=== PATIENT | female | born 1995 | race Caucasian/White ===

== ENCOUNTER 2019-11-16 19:41 | Emergency (ER) | payer OTHER ==
--- NOTE | 2019-11-16 19:46 | EDM.PDOC ---
ED HPI GENERAL MEDICAL PROBLEM - General Chief Complaint: General Stated Complaint: neck pain Time Seen by Provider: 11/16/19 19:45 Source of Information: Reports: Patient. Denies: Old Records History Limitations: Reports: Language Barrier - History of Present Illness INITIAL COMMENTS - FREE TEXT/NARRATIVE: The patient was brought to the emergency room via private automobile by her for 3-4 day history of increasing bilateral neck spasms with no history of fall, injury, etc. She has never had these problems in the past and simply woke up with the symptoms about 4 days ago. Patient did take 500 mg of Tylenol at 800 mg of ibuprofen earlier this morning with no improvement in symptoms. No recent history of abdominal pain, heartburn, nausea, diarrhea, melena, gross hematochezia, or any food intolerance, including fatty foods, etc.. The patient also denies any recent fever, cough, wheezing, dyspnea, etc.. She is a somewhat poor historian secondary to language difficulties. Onset: Gradual Onset Date: 11/13/19 Duration: Constant, Getting Worse Location: Reports: Neck Quality: Reports: Stabbing Severity: Severe Improves with: Reports: Rest Worsens with: Reports: Movement Context: Reports: Other (As above). 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 (Approximate): Other (See Below) 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: Current Mirena with no menses for about 2 years after her last delivery in March 2018 and she is also currently breast-feeding Endocrine/Metabolic History: Reports: Obesity/BMI 30+ Social & Family History - Tobacco Use Smoking Status *Q: Never Smoker Tobacco Use Within Last Twelve Months: No Used Tobacco, but Quit: No Smoking Cessation Information Provided To Patient: No Second Hand Smoke Exposure: No Second Hand Smoke Education Provided: No - Living Situation & Occupation Living situation: Reports: , with Family Occupation: Unemployed ED ROS GENERAL - Review of Systems Review Of Systems: Comprehensive ROS is negative, except as noted in HPI. ED EXAM, GENERAL - Physical Exam Exam: See Below Exam Limited By: No Limitations General Appearance: WD/WN, No Apparent Distress Head: Atraumatic, Normocephalic. No: Facial Swelling, Facial Tenderness, Sinus Tenderness Neck: Supple, Limited Range of Motion, Tender Lateral (Mild bilateral including some mild spasms). No: Lymphadenopathy (L), Lymphadenopathy (R), Tender Midline , Thyromegaly Respiratory/Chest: No Respiratory Distress, Lungs Clear, Normal Breath Sounds, No Accessory Muscle Use, Chest Non-Tender. No: Pleural Rub, Retractions Cardiovascular: Normal Peripheral Pulses, Regular Rate, Rhythm, No Edema, No Gallop, No JVD, No Murmur, No Rub. No: Gallop/S3, Gallop/S4, Friction Rub Peripheral Pulses: 2+: Radial (L), Radial (R) GI/Abdominal: Normal Bowel Sounds, Soft, Non-Tender, No Organomegaly, No Distention, No Abnormal Bruit, No Mass, Other (obese). No: Guarding (Female) Exam: Deferred Rectal (Female) Exam: Deferred Back Exam: Normal Inspection, Full Range of Motion. No: CVA Tenderness (L), CVA Tenderness (R), Muscle Spasm Extremities: Normal Inspection, Normal Range of Motion, Non-Tender, No Pedal Edema, Normal Capillary Refill. No: Leon's Sign Neurological: Alert, Oriented, CN II-XII Intact, Normal Cognition, Normal Gait, No Motor/Sensory Deficits Psychiatric: Normal Affect, Normal Mood Skin Exam: Warm, Dry, Intact, Normal Color, No Rash. No: Diaphoretic, Wound/ Incision Lymphatic: No Adenopathy Course - Vital Signs Last Recorded V/S: Last Vital Signs Temp 37.1 C 11/16/19 19:54 Pulse 75 11/16/19 19:54 Resp 14 11/16/19 19:54 BP 128/68 11/16/19 19:54 Pulse Ox 98 11/16/19 19:54 Vital Signs - 24 hr 11/16/19 19:54 Temperature [ 37.1 C Oral] Pulse, 75 Peripheral [ Right Pulse Oximetry] Respiratory 14 Rate Blood Pressure 128/68 [Right Upper Arm] O2 Sat by Pulse 98 Oximetry - Orders/Labs/Meds Labs: As above Meds: As above - Radiology Interpretation Free Text/Narrative:: As above Departure - Departure Time of Disposition: 20:23 Disposition: Home, Self-Care 01 Condition: Good Clinical Impression: Torticollis, acute - Discharge Information *PRESCRIPTION DRUG MONITORING PROGRAM REVIEWED*: Not Applicable *COPY OF PRESCRIPTION DRUG MONITORING REPORT IN PATIENT BHARATH: Not Applicable Prescriptions: Cyclobenzaprine [Flexeril] 10 mg PO TID PRN #30 tab PRN Reason: Spasms Instructions: Cyclobenzaprine tablets, Acute Torticollis, Adult Forms: ED Department Discharge Additional Instructions: 1. Follow up with your regular provider in 10-14 days as needed, if symptoms persist. Bring these discharge instructions with you to that visit.. 2. Tylenol 650 mg by mouth every 4 hours and/or OTC ibuprofen 2-3 tabs by mouth every 6 hours with food as directed./needed. You may stagger these medications for 48-72 hours only, which essentially means that you are receiving a pain medication about every 2 hours. 3. BenGay or equivalent, heating pad, and/or ice packs as directed. 4. Never take another person's medications 5. Sedation and dry mouth precautions with Flexeril as discussed 6. You may go to a chiropractor if needed 7. Immediately after this visit verify that your cellular telephone's voicemail has been activated and is empty. Also verify that your home telephone 's answering machine is operating properly and has space to receive messages. Note that it is sometimes necessary for us to be able to contact you at a later date to discuss your medical care. 8. Please remember that we are ALWAYS here for you and want to answer any questions you may have. Feel free to call the hospital any time and we call you back CADE. Sepsis Event Note - Focused Exam Vital Signs: Vital Signs Temp Pulse Resp BP Pulse Ox 11/16/19 19:54 37.1 C 75 14 128/68 98 Date Exam was Performed: 11/17/19 Time Exam was Performed: 02:49 - Problem List & Annotations (1) Torticollis, acute SNOMED Code(s): 18509403, 79648135 Code(s): M43.6 - TORTICOLLIS Status: Acute Priority: High Onset Date: ~ 11/13/19 Annotation/Comment:: Symptomatic relief as per discharge instructions. She was cautioned not to use her 's prescription ibuprofen. Sedation, etc. precautions were given with patient provided an emergency room prescription of Flexeril. She was also advised to consider discontinuation of breast-feeding secondary to Flexeril therapy. - Problem List Review Problem List Initiated/Reviewed/Updated: Yes - Assessment/Plan Assessment:: As above Plan: As above. Extensive precautions were given to the patient, who is in agreement with the treatment plan. See Patient Instructions for further treatment and plan.
== END 2019-11-16 20:23 | disposition home or self-care (01) ==
LOC: LL.ED 19:41
DX: M43.6 Torticollis (principal); E66.9 Obesity, unspecified; Z68.32 Body mass index [BMI] 32.0-32.9, adult
CPT/HCPCS: 99283

== ENCOUNTER 2020-04-27 09:28 | Emergency (ER) | payer BC, SELFPAY ==
[2020-04-27] MEDS ORDERED: Pantoprazole 40 MG Vial IVPUSH ONE (09:51)
[2020-04-27] MEDS ORDERED: Ondansetron 4 MG/2 ML SDV IVPUSH ONE (09:51)
[2020-04-27] MEDS ORDERED: Famotidine 20 MG/2 ML SDV IVPUSH ONE (09:51)
--- NOTE | 2020-04-27 09:51 | EDM.PDOC ---
ED HPI GENERAL MEDICAL PROBLEM - General Chief Complaint: Abdominal Pain Stated Complaint: abdominal pain Time Seen by Provider: 04/27/20 09:50 Source of Information: Reports: Patient, Family (), Old Records ([facility] EMR. No paper hospital chart available.) History Limitations: Reports: Language Barrier - History of Present Illness INITIAL COMMENTS - FREE TEXT/NARRATIVE: The patient was brought to the emergency room via private automobile by her for evaluation of a one-month history of intermittent frequent recurrent mostly epigastric abdominal pain associated with some fatty food and tolerance, including pizza, eggs, etc. She did have pizza at 2000 hrs. yesterday evening and awoke at 2 AM this morning with 9/10 severe epigastric burning, burping, and nausea. She has not taken any medications for her symptoms to this point, despite known history of GERD. Note that the patient did have multiple doses of ibuprofen over 5-day period secondary to beginning dental implant surgery with last dose of NSAIDs about 5 days ago. No recent history of other abdominal pain, emesis diarrhea, melena, gross hematochezia, or any food intolerance, including fatty foods, etc. with normal bowel movement at 1 AM this morning. She denies any known exposure to infection, food poisoning, etc.. No history of gross hematuria, colic, or other UTI symptoms. The patient also denies any recent fever, cough, wheezing, dyspnea, etc.. Onset: Gradual Onset Date: 04/27/20 Onset Time: 02:00 Duration: Constant, Getting Worse Location: Reports: Abdomen. Denies: Head, Face, Back, Pelvis, Upper Extremity, Left, Upper Extremity, Right, Radiates to Quality: Reports: Burning, Same as Previous Episode Severity: Severe Improves with: Reports: None Worsens with: Reports: None Context: Reports: Other (As above). Denies: Sick Contact, Trauma Associated Symptoms: Reports: Nausea/Vomiting (No emesis). Denies: Confusion, Chest Pain, Cough, Diaphoresis, Fever/Chills, Headaches, Loss of Appetite, Malaise, Seizure, Shortness of Breath, Syncope, Weakness Treatments RADIO RIGGER: Reports: Other (see below) (None) Upper Abdominal Pain Score (Numeric/FACES): 10 - Related Data Allergies Allergy/AdvReac Type Severity Reaction Status Date / Time No Known Allergies Allergy Verified 04/27/20 10:55 Home Meds: Home Meds Omeprazole 20 mg PO BIDAC #60 cap.sr 04/27/20 [Rx] Past Medical History HEENT History: Reports: Allergic Rhinitis, Sinusitis, Other (See Below). Denies: Cataract, Glaucoma, Hard of Hearing, Impaired Vision, Macular Degeneration, Otitis Media, Retinal Detachment Other HEENT History: Allergic rhinitis and sinusitis mostly to dust. Cardiovascular History: Reports: Syncope, Other (See Below). Denies: Afib, Aneurysm, Arrhythmia, Blood Clots/VTE/DVT, CAD, Heart Failure, Heart Murmur, High Cholesterol, Hypertension Other Cardiovascular History: The patient does not know her cholesterol status. Recurrent brief syncopal episodes with anxiety attacks as below. Respiratory History: Reports: Intubation, Previous. Denies: Asthma, Bronchitis, Recurrent, COPD, Intubation, Difficult, PE, Pneumonia, Recurrent, Pneumothorax, Sleep Apnea, TB Gastrointestinal History: Reports: GERD. Denies: Bowel Obstruction, Celiac Disease, Cholelithiasis, Chronic Constipation, Chronic Diarrhea, Fecal Incontinence, GI Bleed, Irritable Bowel Syndrome, Jaundice, PUD Genitourinary History: Reports: None. Denies: Acute Renal Failure, Chronic Renal Insuffiency, Renal Calculus, STD, Urinary Incontinence, UTI, Recurrent STREET LIGHT WIRER History: Reports: . Denies: Dysfunctional Uterine Bleeding, Endometriosis, Polycystic Ovaries, Spontaneous : 3 Para: 3 LMP (Approximate): Other (See Below) Other STREET LIGHT WIRER History: Current menses after repeat IUD placement as below with previous Mirena with no menses for about 2 years after her last delivery in March 2018. Full term delivery by C-sections without complications during pregnancies or deliveries. Musculoskeletal History: Reports: Arthritis, Back Pain, Chronic, Osteoarthritis. Denies: Fracture, Gout, Neck Pain, Chronic, RA, SLE Neurological History: Reports: None. Denies: Concussion, CVA, Headaches, Chronic, Head Trauma, Migraines, MS, Parkinson's, Seizure, TIA Psychiatric History: Reports: Anxiety, Depression, Other (See Below). Denies: Abuse, Victim of, ADD, ADHD, Addiction, Psych Hospitalization(s), Psychosis, PTSD, Suicide Attempt, Suicidal Ideation Other Psychiatric History: Psychogenic syncope as above. Endocrine/Metabolic History: Reports: Obesity/BMI 30+. Denies: Diabetes, Gestational, Diabetes, Type I, Diabetes, Type II, Diabetes Mellitus, Type 3c, Hypothyroidism, IDDM Hematologic History: Reports: None. Denies: Anemia, Blood Transfusion(s), Iron Deficiency Immunologic History: Reports: None. Denies: AIDS, HIV, SLE Oncologic (Cancer) History: Reports: None. Denies: Basal Cell Carcinoma, Cervix, Hodgkin's Lymphoma, Leukemia, Lymphoma, Malignant Melanoma, Non- Hodgkin's Lymphoma, Ovarian, Squamous Cell Carcinoma, Uterine Dermatologic History: Reports: None. Denies: Eczema, Psoriasis - Infectious Disease History Infectious Disease History: Reports: Chicken Pox. Denies: C-Difficile, Measles, Meningitis, Mononucleosis, MRSA, Mumps, Pertussis (Whooping Cough), Rheumatic Fever, Rubella, Scarlet Fever, Shingles, TB, VRE - Past Surgical History Head Surgeries/Procedures: Reports: None HEENT Surgical History: Reports: Adenoidectomy, Oral Surgery, Tonsillectomy, Other (See Below). Denies: Cataract Surgery, Eye Surgery, Laser Surgery, LASIK, Myringotomy w Tube(s), Naso-Sinus Surgery Other HEENT Surgeries/Procedures: Tonsillectomy and adenoidectomy at age 11. [place] teeth extraction x2 at age 11. Current dental implant in progress since March 2020. Cardiovascular Surgical History: Reports: None. Denies: Varicose Respiratory Surgical History: Reports: None. Denies: Thoracentesis GI Surgical History: Reports: None. Denies: Appendectomy, Cholecystectomy, Colonoscopy, EGD, Hernia, Abdominal, Hernia, Inguinal, Hernia Repair/Other Female Surgical History: Reports: Section, Other (See Below). Denies: Breast Biopsy, D&C, Hysterectomy, Tubal Ligation Other Female Surgeries/Procedures: C-sections x3 as above. Initial IUD placement after last delivery in March 2018 with complications of detached IUD with removal on 03/13/2020 and replacement on 04/11/2020. Endocrine Surgical History: Reports: None. Denies: Thyroid Biopsy Neurological Surgical History: Reports: None. Denies: C-Spine, Discectomy, Laminectomy, Lumbar Spine, Sacral Spine, Spinal Fusion, Thoracic Spine, Vertebroplasty Musculoskeletal Surgical History: Reports: None. Denies: Arthroscopic Procedure, Carpal Tunnel, Ganglion Cyst, Joint Replacement, ORIF, Shoulder Surgery Oncologic Surgical History: Reports: None Dermatological Surgical History: Reports: None - Past Imaging History Past Imaging History: Reports: Ultrasound (Pelvic ultrasound on 02/21/2020.) Social & Family History - Tobacco Use Smoking Status *Q: Never Smoker Tobacco Use Within Last Twelve Months: No Used Tobacco, but Quit: No Smoking Cessation Information Provided To Patient: No Second Hand Smoke Exposure: No Second Hand Smoke Education Provided: No - Caffeine Use Caffeine Use: Reports: Coffee (1 cup/day), Energy Drinks (1can/month), Tea (4 cups/day). Denies: Soda - Alcohol Use Alcohol Use History: No Days Per Week of Alcohol Use: 0 Number of Drinks Per Day: 0 Number of Drinks Per Day Comment: No previous DWIs, problems with alcohol abuse, etc. Total Drinks Per Week: 0 Alcohol Use in Last Twelve Months: No - Recreational Drug Use Recreational Drug Use: No Drug Use in Last 12 Months: No Recreational Drug Type: Denies: Amphetamines (Speed), Cocaine, Heroin, Inhalants (Glues, Solvents, Aerosols), LSD (Acid), Marijuana/Hashish, Methamphetamine, Morphine, Oxycodone - Sexual History Sexual History: Reports: Single Partner - Living Situation & Occupation Living situation: Reports: (2014, 3 children), with Family ( and 3 children.) Occupation: Unemployed ED ROS GENERAL - Review of Systems Review Of Systems: Comprehensive ROS is negative, except as noted in HPI. ED EXAM, GI/ABD - Physical Exam Exam: See Below Exam Limited By: No Limitations General Appearance: Alert, WD/WN, No Apparent Distress, Anxious (Mild) Eyes: Bilateral: Normal Appearance (No nystagmus), EOMI (PERRLA) Ears: Normal External Exam, Normal Canal, Hearing Grossly Normal, Normal TMs Nose: Normal Inspection, Normal Mucosa, No Blood Throat/Mouth: Normal Inspection, Normal Lips, Normal Teeth (Left lower dental extraction/implant site noted in the premolar region with no evidence of acute infection), Normal Gums, Normal Oropharynx, Normal Voice, No Airway Compromise. No: Dysphagia Head: No: Atraumatic, Normocephalic, Facial Swelling, Facial Tenderness, Sinus Tenderness Neck: Normal Inspection, Supple, Non-Tender, Full Range of Motion. No: Carotid Bruit, Lymphadenopathy (L), Lymphadenopathy (R), Thyromegaly Respiratory/Chest: No Respiratory Distress. No: Pleural Rub, Retractions Cardiovascular: Normal Peripheral Pulses, Regular Rate, Rhythm, No Edema, No Gallop, No JVD, No Murmur, No Rub. No: Gallop/S3, Gallop/S4, Friction Rub GI/Abdominal Exam: Soft, No Organomegaly, No Distention, No Mass, Pelvis Stable, Rebound (Borderline), Tender (Mostly in the midepigastric and periumbilical regionmoderate palpation), Abnormal Bowel Sounds (Mild diffuse increased bowel sounds not high-pitched in nature), Other (Obese). No: Guarding, Rigid (Female) Exam: Deferred Rectal (Female) Exam: Deferred Back Exam: Normal Inspection, Full Range of Motion. No: CVA Tenderness (L), CVA Tenderness (R), Muscle Spasm Extremities: Normal Inspection, Normal Range of Motion, Non-Tender, No Pedal Edema, Normal Capillary Refill. No: Leon's Sign (Endoscope) Neurological: Alert, Oriented, CN II-XII Intact, Normal Cognition, Normal Gait, No Motor/Sensory Deficits Psychiatric: Anxious (Mild), Depressed Mood ( borderline) Skin Exam: Warm, Dry, Intact, Normal Color, No Rash. No: Diaphoretic, Wound/Incision Lymphatic: No Adenopathy Course - Vital Signs Last Recorded V/S: Last Vital Signs Temp 36.9 C 04/27/20 12:00 Pulse 76 04/27/20 12:00 Resp 16 04/27/20 12:00 BP 109/60 04/27/20 12:00 Pulse Ox 100 04/27/20 12:00 Vital Signs - 24 hr 04/27/20 04/27/20 04/27/20 09:40 10:55 12:00 Temperature [ 36.7 C 36.9 C 36.9 C Oral] Pulse, 84 84 76 Peripheral [ Pulse Oximetry] Respiratory 17 18 16 Rate Blood Pressure 105/58 L 107/68 109/60 [Left Upper Arm ] O2 Sat by Pulse 99 99 100 Oximetry - Orders/Labs/Meds Orders: Active Orders 24 hr Category Date Time Status Peripheral IV Care [RC] . DIRECTED Care 04/27/20 09:52 Active Nothing Per Oral Diet [DIET] Diet 04/27/20 Breakfast Active Abdomen Pelvis w Cont [CT] Stat Exams 04/27/20 10:02 Taken Sodium Chloride 0.9% [Saline Flush] Med 04/27/20 09:51 Active 10 ml FLUSH ASDIRECTED PRN Obtain Past Medical Record [OM.PC] Urgent Oth 04/27/20 09:51 Active Peripheral IV Insertion Adult [OM.PC] Stat Oth 04/27/20 09:51 Ordered Resuscitation Status Stat Resus Stat 04/27/20 09:51 Ordered Medication Orders Sodium Chloride (Saline Flush) 10 ml FLUSH ASDIRECTED PRN PRN Reason: Keep Vein Open Last Admin: 04/27/20 11:47 Dose: 10 ml Documented by: Admin: 04/27/20 11:45 Dose: 10 ml Documented by: Admin: 04/27/20 10:00 Dose: 10 ml Documented by: Admin: 04/27/20 09:59 Dose: 10 ml Documented by: RAGHU Labs: Laboratory Tests 04/27/20 04/27/20 04/27/20 Range/Units 09:55 09:55 09:55 WBC 6.5 (4.0-10.2) K/uL RBC 5.02 (3.77-5.09) M/uL Hgb 14.9 (11.7-15.5) g/dL Hct 43.3 (34.0-46.0) % MCV 86.3 (84.0-98.0) fL MCH 29.7 (28.2-33.3) pg MCHC 34.4 (31.7-36.0) g/dL RDW 12.8 (11.2-14.1) % Plt Count 228 (150-350) K/uL Neut % (Auto) 43.8 L (45.0-80.0) % Lymph % (Auto) 41.4 (10.0-50.0) % [place] % (Auto) 8.5 (2.0-14.0) % Eos % (Auto) 6.0 H (0.0-5.0) % Baso % (Auto) 0.3 (0.0-2.0) % Neut # (Auto) 2.82 (1.40-7.00) K/uL Lymph # (Auto) 2.67 (0.50-3.50) K/uL [place] # (Auto) 0.55 (0.00-1.00) K/uL Eos # (Auto) 0.39 (0.00-0.50) K/uL Baso # (Auto) 0.02 (0.00-0.20) K/uL PT 9.9 (9.5-12.0) SEC INR 1.0 APTT 23.3 L (24.5-32.8) SEC Sodium (136-145) mmol/L Potassium (3.5-5.1) mmol/L Chloride (98-107) mmol/L Carbon Dioxide (21.0-32.0) mmol/L BUN (7-18) mg/dL Creatinine (0.51-1.17) mg/dL Est Cr Clr Drug Dosing Estimated GFR (MDRD) mL/min Glucose (74-106) mg/dL Lactic Acid (0.4-2.0) mmol/L Uric Acid (2.6-7.2) mg/dL Calcium (8.5-10.1) mg/dL Magnesium (1.8-2.4) mg/dL Total Bilirubin (0.2-1.0) mg/dL AST (15-37) U/L ALT (12-78) U/L Alkaline Phosphatase (46-116) IU/L Total Protein (6.4-8.2) g/dL Albumin (3.4-5.0) g/dL Amylase 56 (25-115) U/L Lipase (73-393) U/L HCG, Qual (NEGATIVE) 04/27/20 04/27/20 04/27/20 Range/Units 09:55 09:55 09:55 WBC (4.0-10.2) K/uL RBC (3.77-5.09) M/uL Hgb (11.7-15.5) g/dL Hct (34.0-46.0) % MCV (84.0-98.0) fL MCH (28.2-33.3) pg MCHC (31.7-36.0) g/dL RDW (11.2-14.1) % Plt Count (150-350) K/uL Neut % (Auto) (45.0-80.0) % Lymph % (Auto) (10.0-50.0) % [place] % (Auto) (2.0-14.0) % Eos % (Auto) (0.0-5.0) % Baso % (Auto) (0.0-2.0) % Neut # (Auto) (1.40-7.00) K/uL Lymph # (Auto) (0.50-3.50) K/uL [place] # (Auto) (0.00-1.00) K/uL Eos # (Auto) (0.00-0.50) K/uL Baso # (Auto) (0.00-0.20) K/uL PT (9.5-12.0) SEC INR APTT (24.5-32.8) SEC Sodium 139 (136-145) mmol/L Potassium 4.2 (3.5-5.1) mmol/L Chloride 104 (98-107) mmol/L Carbon Dioxide 24.7 (21.0-32.0) mmol/L BUN 14 (7-18) mg/dL Creatinine 0.52 (0.51-1.17) mg/dL Est Cr Clr Drug Dosing TNP Estimated GFR (MDRD) > 60 mL/min Glucose 114 H (74-106) mg/dL Lactic Acid 2.0 (0.4-2.0) mmol/L Uric Acid 5.2 (2.6-7.2) mg/dL Calcium 9.6 (8.5-10.1) mg/dL Magnesium 1.8 (1.8-2.4) mg/dL Total Bilirubin 0.3 (0.2-1.0) mg/dL AST 24 (15-37) U/L ALT 40 (12-78) U/L Alkaline Phosphatase 42 L (46-116) IU/L Total Protein 7.8 (6.4-8.2) g/dL Albumin 3.9 (3.4-5.0) g/dL Amylase (25-115) U/L Lipase 130 (73-393) U/L HCG, Qual Negative (NEGATIVE) Meds: Medications Generic Name Dose Route Start Last Admin Trade Name Freq PRN Reason Stop Dose Admin Sodium Chloride 10 ml 04/27/20 09:51 04/27/20 11:47 Saline Flush FLUSH 10 ml ASDIRECTED PRN Administration Keep Vein Open Discontinued Medications Generic Name Dose Route Start Last Admin Trade Name Freq PRN Reason Stop Dose Admin Al Hydroxide/Mg Hydroxide 30 ml 04/27/20 10:54 04/27/20 10:57 Gi Cocktail PO 04/27/20 10:55 30 ml ONETIME ONE Administration Famotidine 40 mg 04/27/20 09:51 04/27/20 09:58 Pepcid IVPUSH 04/27/20 09:52 40 mg ONETIME ONE Administration Iopamidol 100 ml 04/27/20 10:29 Isovue-300 (61%) IVPUSH 04/27/20 10:30 ONETIME ONE Iopamidol Confirm 04/27/20 10:32 Isovue-300 (61%) Administered 04/27/20 10:33 Dose 100 ml .ROUTE .STK-MED ONE Ketorolac Tromethamine 30 mg 04/27/20 11:39 04/27/20 11:44 Toradol IVPUSH 04/27/20 11:40 30 mg ONETIME ONE Administration Lorazepam 0.5 mg 04/27/20 11:40 04/27/20 11:44 Ativan IVPUSH 04/27/20 11:41 0.5 mg ONETIME ONE Administration Ondansetron HCl 4 mg 04/27/20 09:51 04/27/20 09:58 Zofran IVPUSH 04/27/20 09:52 4 mg ONETIME ONE Administration Pantoprazole Sodium 40 mg 04/27/20 09:51 04/27/20 09:58 Protonix Iv IVPUSH 04/27/20 09:52 40 mg ONETIME ONE Administration - Radiology Interpretation Free Text/Narrative:: Telephone consultation at 11:29 AM with the radiology department at [facility]. Preliminary verbal report of CT scan of the abdomen and pelvis with IV contrast was negative for cholelithiasis, cholecystitis, appendic itis, etc. Otherwise overall normal findings. CT Results Date: 04/27/20 CT Results Time: 11:29 Departure - Departure Time of Disposition: 12:10 Disposition: Home, Self-Care 01 Clinical Impression: Peptic reflux disease, Mixed anxiety depressive disorder Abdominal pain Qualifiers: Abdominal location: epigastric Qualified Code(s): R10.13 - Epigastric pain Osteoarthritis Qualifiers: Osteoarthritis location: multiple joints Osteoarthritis type: primary Qualified Code(s): M89.49 - Other hypertrophic osteoarthropathy, multiple sites - Discharge Information *PRESCRIPTION DRUG MONITORING PROGRAM REVIEWED*: Not Applicable *COPY OF PRESCRIPTION DRUG MONITORING REPORT IN PATIENT BHARATH: Not Applicable Prescriptions: Omeprazole 20 mg PO BIDAC #60 cap.sr Instructions: Heartburn, [id number], Abdominal Pain, Adult, [id number], Gallbladder Eating Plan, Fat and Cholesterol Restricted Eating Plan, [id number] Referrals: Luiza Gonzales PA-C [Primary Care Provider] - Forms: ED Department Discharge Additional Instructions: 1. Followup with your regular provider in 10-14 days as directed for reevaluation and discussion of your gallbladder/HIDA scan results. Bring these discharge instructions with you to that visit. 2. Tylenol 650 mg by mouth every 4 hours and/or OTC ibuprofen 2-3 tabs by mouth every 6 hours with food as directed./needed. You may stagger these medications for 48-72 hours only, which essentially means that you are receiving a pain medication about every 2 hours. Next dose of ibuprofen in 6 hours secondary to medications given in the emergency room 3. [place] diet including encouragement of oral fluids such as sports drinks, etc. for 24-48 hours as directed. Advance to strict low-fat, low-cholesterol diet as tolerated thereafter. 4. Sedation precautions with no driving, etc. for 18 hours because of emergency room medications. 5. HIDA scan in this facility on 05/04/2020 with hospital to call you with specific time, preparation, etc. 6. Immediately after this visit verify that your cellular telephone's voicemail has been activated and is empty. Also verify that your home telephone's answering machine is operating properly and has space to receive messages. Note that it is sometimes necessary for us to be able to contact you at a later date to discuss your medical care. 7. Please remember that we are ALWAYS here for you and want to answer any questions you may have. Feel free to call the hospital any time and we call you back [facility]. 9. Increase your Prilosec/omeprazole to 20 mg 2 times a day starting this afternoon, and you may take extra OTC antacids, if needed as discussed. Sepsis Event Note (ED) - Evaluation Sepsis Screening Result: No Definite Risk - Focused Exam Vital Signs: Vital Signs Temp Pulse Resp BP Pulse Ox 04/27/20 12:00 36.9 C 76 16 109/60 100 04/27/20 10:55 36.9 C 84 18 107/68 99 04/27/20 09:40 36.7 C 84 17 105/58 L 99 - Problem List & Annotations (1) Abdominal pain SNOMED Code(s): 65430681 Code(s): R10.9 - UNSPECIFIED ABDOMINAL PAIN Status: Acute Priority: High Current Visit: Yes Onset Date: 04/27/20 Annotation/Comment:: 1 month history of fatty food intolerance and intermittent abdominal pain as above. Note normal CT scan of the abdomen pelvis results as above. Borderline peritonitis by clinical exam as above, however no fever, leukocytosis, etc. Her amylase and lipase are also normal. Suspect dysfunctional gallbladder with HIDA scan to be conducted in this facility [facility]. The patient did have 2 episodes of loose diarrhea in the emergency room with persistent burping until the green lizard was given as below. Possible additional viral GE component. Note aggressive high-dose IV Protonix and IV Pepcid given in the emergency room with initial minimal results. Green lizard subsequently given. Additional low-dose IV Ativan and IV Toradol given prior to patient's discharge with symptoms signif icantly improved at time of discharge. Dietary issues were extensively discussed with information provided and strict avoidance of all fatty foods, etc. Her was given a [employer] work excuse. Qualifiers: Abdominal location: epigastric Qualified Code(s): R10.13 - Epigastric pain (2) Peptic reflux disease SNOMED Code(s): 831684496 Code(s): K21.9 - GASTRO-ESOPHAGEAL REFLUX DISEASE WITHOUT ESOPHAGITIS Status: Chronic Priority: High Current Visit: Yes Annotation/Comment:: Compliance with medications encouraged. High-dose IV Pepcid and Protonix given as above. No evidence of acute GI bleed. (3) Mixed anxiety depressive disorder SNOMED Code(s): 596883552 Code(s): F41.8 - OTHER SPECIFIED ANXIETY DISORDERS Status: Chronic Priority: Medium Current Visit: Yes Annotation/Comment:: Stable by history, although some mild anxiety component today. Low-dose IV Ativan given as above. Sedation precautions were given. (4) Osteoarthritis SNOMED Code(s): 902049663 Code(s): M19.90 - UNSPECIFIED OSTEOARTHRITIS, UNSPECIFIED SITE Status: Chronic Priority: Medium Current Visit: Yes Annotation/Comment:: Stable by history Qualifiers: Osteoarthritis location: multiple joints Osteoarthritis type: primary Qualified Code(s): M89.49 - Other hypertrophic osteoarthropathy, multiple sites - Problem List Review Problem List Initiated/Reviewed/Updated: Yes - My Orders Last 24 Hours: My Active Orders 04/27/20 Breakfast Nothing Per Oral Diet [DIET] 04/27/20 09:51 Sodium Chloride 0.9% [Saline Flush] 10 ml FLUSH ASDIRECTED PRN Obtain Past Medical Record [OM.PC] Urgent Peripheral IV Insertion Adult [OM.PC] Stat Resuscitation Status Stat 04/27/20 09:52 Peripheral IV Care [RC] . DIRECTED 04/27/20 10:02 Abdomen Pelvis w Cont [CT] Stat - Assessment/Plan Last 24 Hours: My Active Orders 04/27/20 Breakfast Nothing Per Oral Diet [DIET] 04/27/20 09:51 Sodium Chloride 0.9% [Saline Flush] 10 ml FLUSH ASDIRECTED PRN Obtain Past Medical Record [OM.PC] Urgent Peripheral IV Insertion Adult [OM.PC] Stat Resuscitation Status Stat 04/27/20 09:52 Peripheral IV Care [RC] . DIRECTED 04/27/20 10:02 Abdomen Pelvis w Cont [CT] Stat Assessment:: As above Plan: As above. Extensive precautions were given to the patient and her , who are in agreement with the treatment plan. See Patient Instructions for further treatment and plan.
[2020-04-27] MEDS: Sodium Chloride 0.9% 10 ML Syringe FLUSH PRN ×4 (09:59→11:47)
[2020-04-27 10:17] LABS: PTT,PARTIAL THROMBOPLSTIN TIME 23.3 SEC (24.5-32.8)
[2020-04-27 10:29] LABS: CHLORIDE,CL 104 mmol/L (98-107); SODIUM,NA 139 mmol/L (136-145)
[2020-04-27] MEDS ORDERED: Iopamidol 612 MG/ML 100 ML Bottle IVPUSH ONE (10:29)
[2020-04-27] MEDS ORDERED: Iopamidol 612 MG/ML 100 ML Bottle ONE (10:32)
[2020-04-27] MEDS ORDERED: GI Cocktail Oral Solution 30 ML PO ONE (10:54)
[2020-04-27] MEDS ORDERED: Ketorolac 30 MG/ML SDV IVPUSH ONE (11:39)
[2020-04-27] MEDS ORDERED: LORazepam 2 MG/ML SDV IVPUSH ONE (11:40)
== END 2020-04-27 12:10 | disposition home or self-care (01) ==
LOC: LL.ED 09:28
DX: K21.9 Gastro-esophageal reflux disease without esophagitis (principal); M89.49 Other hypertrophic osteoarthropathy, multiple sites; F41.8 Other specified anxiety disorders; Z79.899 Other long term (current) drug therapy
CPT/HCPCS: 36415; 74177; 80053; 82150; 83605; 83690; 83735; 84550; 84703; 85025; 85610; 85730; 96374; 96375; 99284; A9270; C9113; J1885; J2060; J2405; J3490; Q9967

== ENCOUNTER 2020-05-11 12:26 | Emergency (ER) | payer BC ==
[2020-05-11] MEDS ORDERED: Lactated Ringers 1,000 ML IV ONE (12:46)
[2020-05-11] MEDS ORDERED: Pantoprazole 40 MG Vial IVPUSH ONE (12:46)
[2020-05-11] MEDS ORDERED: Famotidine 20 MG/2 ML SDV IVPUSH ONE (12:46)
--- NOTE | 2020-05-11 12:46 | EDM.PDOC ---
ED HPI GENERAL MEDICAL PROBLEM - General Chief Complaint: Abdominal Pain Stated Complaint: stomach upset/nausea Time Seen by Provider: 05/11/20 12:46 Source of Information: Reports: Patient, Old Records ([facility] EMR. No paper hospital chart available.) History Limitations: Reports: No Limitations - History of Present Illness INITIAL COMMENTS - FREE TEXT/NARRATIVE: The patient was brought to the emergency room by the radiological tech for evaluation of diffuse generalized nonspecific abdominal cramping associated with hiccups, belching, nausea, etc. with symptoms occurring shortly after injection of contrast medium while patient was having a HIDA scan. Her symptoms are similar to her previous episode on 04/27/2020 with evaluation by me in this facility at that time. Symptoms did improve with dietary modifications at that time, however she still is having intermittent symptoms about 2-3 hours after food intake. The patient did have a normal bowel movement earlier today. She denies any gross hematuria, colic, or other UTI symptoms. The patient also denies any recent fever, cough, wheezing, dyspnea, etc.. Onset: Today, Sudden Onset Date: 05/11/20 Duration: Constant, Getting Worse Location: Reports: Abdomen. Denies: Head, Face, Neck, Chest, Back, Pelvis, Upper Extremity, Left, Upper Extremity, Right, Radiates to Quality: Reports: Same as Previous Episode Severity: Severe Improves with: Reports: None Worsens with: Reports: None Context: Reports: Other (As above). Denies: Sick Contact, Trauma Associated Symptoms: Reports: Nausea/Vomiting. Denies: Confusion, Chest Pain, Cough, Diaphoresis, Fever/Chills, Headaches, Loss of Appetite, Malaise, Rash, Shortness of Breath, Syncope, Weakness Treatments GOLDBEATER: Reports: Other (see below) (None) Middle Abdomen Pain Score (Numeric/FACES): 9 - Related Data Allergies Allergy/AdvReac Type Severity Reaction Status Date / Time No Known Allergies Allergy Verified 05/11/20 12:55 Home Meds: Home Meds Omeprazole 20 mg PO BIDAC #60 cap.sr 04/27/20 [Rx] Famotidine [Pepcid] 20 mg PO BID #60 tab 05/11/20 [Rx] Past Medical History HEENT History: Reports: Allergic Rhinitis, Sinusitis, Other (See Below). Denies: Cataract, Glaucoma, Hard of Hearing, Impaired Vision, Macular Degeneration, Otitis Media, Retinal Detachment Other HEENT History: Allergic rhinitis and sinusitis mostly to dust. Cardiovascular History: Reports: Syncope, Other (See Below). Denies: Afib, Aneurysm, Arrhythmia, Blood Clots/VTE/DVT, CAD, Heart Failure, Heart Murmur, High Cholesterol, Hypertension Other Cardiovascular History: The patient does not know her cholesterol status. Recurrent brief syncopal episodes with anxiety attacks as below. Respiratory History: Reports: Intubation, Previous. Denies: Asthma, Bronchitis, Recurrent, COPD, Intubation, Difficult, PE, Pneumonia, Recurrent, Pneumothorax, Sleep Apnea, TB Gastrointestinal History: Reports: GERD. Denies: Bowel Obstruction, Celiac Disease, Cholelithiasis, Chronic Constipation, Chronic Diarrhea, Fecal Incontin ence, GI Bleed, Irritable Bowel Syndrome, Jaundice, PUD Genitourinary History: Reports: None. Denies: Acute Renal Failure, Chronic Renal Insuffiency, Renal Calculus, STD, Urinary Incontinence, UTI, Recurrent DATA COMMUNICATIONS TECHNICIAN History: Reports: . Denies: Dysfunctional Uterine Bleeding, Endometriosis, Polycystic Ovaries, Spontaneous : 3 Para: 3 Other DATA COMMUNICATIONS TECHNICIAN History: LMP was normal about 2 weeks. Note after repeat IUD placement as below with previous Mirena with no menses for about 2 years after her last delivery in March 2018. Full term delivery by C-sections without complications during pregnancies or deliveries. Musculoskeletal History: Reports: Arthritis, Back Pain, Chronic, Osteoarthritis. Denies: Fracture, Gout, Neck Pain, Chronic, RA, SLE Neurological History: Reports: None. Denies: Concussion, CVA, Headaches, Chronic, Head Trauma, Migraines, MS, Parkinson's, Seizure, TIA Psychiatric History: Reports: Anxiety, Depression, Panic Attack, Other (See Below). Denies: Abuse, Victim of, ADD, ADHD, Addiction, Psych Hospitalization(s), Psychosis, PTSD, Suicide Attempt, Suicidal Ideation Other Psychiatric History: Psychogenic syncope as above. Endocrine/Metabolic History: Reports: Obesity/BMI 30+. Denies: Diabetes, Gestational, Diabetes, Type I, Diabetes, Type II, Diabetes Mellitus, Type 3c, Hypothyroidism, IDDM Hematologic History: Reports: None. Denies: Anemia, Blood Transfusion(s), Iron Deficiency Immunologic History: Reports: None. Denies: AIDS, HIV, SLE Oncologic (Cancer) History: Reports: None. Denies: Basal Cell Carcinoma, Cervix, Hodgkin's Lymphoma, Leukemia, Lymphoma, Malignant Melanoma, Non- Hodgkin's Lymphoma, Ovarian, Squamous Cell Carcinoma, Uterine Dermatologic History: Reports: None. Denies: Eczema, Psoriasis - Infectious Disease History Infectious Disease History: Reports: Chicken Pox. Denies: C-Difficile, Measles, Meningitis, Mononucleosis, MRSA, Mumps, Pertussis (Whooping Cough), Rheumatic Fever, Rubella, Scarlet Fever, Shingles, TB, VRE - Past Surgical History Head Surgeries/Procedures: Reports: None HEENT Surgical History: Reports: Adenoidectomy, Oral Surgery, Tonsillectomy, Other (See Below). Denies: Cataract Surgery, Eye Surgery, Laser Surgery, LASIK, Myringotomy w Tube(s), Naso-Sinus Surgery Other HEENT Surgeries/Procedures: Tonsillectomy and adenoidectomy at age 11. [place] teeth extraction x2 at age 11. Current dental implant in progress since March 2020. Cardiovascular Surgical History: Reports: None. Denies: Varicose Respiratory Surgical History: Reports: None. Denies: Thoracentesis GI Surgical History: Reports: None. Denies: Appendectomy, Cholecystectomy, Colonoscopy, EGD, Hernia, Abdominal, Hernia, Inguinal, Hernia Repair/Other Female Surgical History: Reports: Section, Other (See Below). Denies: Breast Biopsy, D&C, Hysterectomy, Tubal Ligation Other Female Surgeries/Procedures: C-sections x3 as above. Initial IUD placement after last delivery in March 2018 with complications of detached IUD with removal on 03/13/2020 and replacement on 04/11/2020. Endocrine Surgical History: Reports: None. Denies: Thyroid Biopsy Neurological Surgical History: Reports: None. Denies: C-Spine, Discectomy, Laminectomy, Lumbar Spine, Sacral Spine, Spinal Fusion, Thoracic Spine, Vertebroplasty Musculoskeletal Surgical History: Reports: None. Denies: Arthroscopic Procedure, Carpal Tunnel, Ganglion Cyst, Joint Replacement, ORIF, Shoulder Surgery Oncologic Surgical History: Reports: None Dermatological Surgical History: Reports: None - Past Imaging History Past Imaging History: Reports: CAT Scan (CT scan of the abdomen and pelvis with IV contrast on 05/24/2020.), HIDA Scan (05/11/2020), Ultrasound (Pelvic ultrasound on 02/21/2020.) Social & Family History - Tobacco Use Smoking Status *Q: Never Smoker Tobacco Use Within Last Twelve Months: No Used Tobacco, but Quit: No Smoking Cessation Information Provided To Patient: No Second Hand Smoke Exposure: No Second Hand Smoke Education Provided: No - Caffeine Use Caffeine Use: Reports: Coffee (1 cup/day), Energy Drinks (1can/month), Tea (4 cups/day). Denies: Soda - Alcohol Use Alcohol Use History: No Days Per Week of Alcohol Use: 0 Number of Drinks Per Day: 0 Number of Drinks Per Day Comment: No previous DWIs, problems with alcohol abuse, etc. Total Drinks Per Week: 0 Alcohol Use in Last Twelve Months: No - Recreational Drug Use Recreational Drug Use: No Drug Use in Last 12 Months: No Recreational Drug Type: Denies: Amphetamines (Speed), Cocaine, Heroin, Inhalants (Glues, Solvents, Aerosols), LSD (Acid), Marijuana/Hashish, Methamphetamine, Morphine, Oxycodone - Sexual History Sexual History: Reports: Single Partner - Living Situation & Occupation Living situation: Reports: (2014, 3 children), with Family ( and 3 children.) Occupation: Unemployed ED ROS GENERAL - Review of Systems Review Of Systems: Comprehensive ROS is negative, except as noted in HPI. ED EXAM, GI/ABD - Physical Exam Exam: See Below Exam Limited By: No Limitations General Appearance: Alert, WD/WN, No Apparent Distress, Anxious (Mild) Head: Atraumatic, Normocephalic. No: Facial Swelling, Facial Tenderness, Sinus Tenderness Neck: Normal Inspection, Supple, Non-Tender, Full Range of Motion. No: Carotid Bruit, Lymphadenopathy (L), Lymphadenopathy (R), Thyromegaly Respiratory/Chest: No Respiratory Distress, Lungs Clear, Normal Breath Sounds, No Accessory Muscle Use, Chest Non-Tender. No: Pleural Rub, Retractions Cardiovascular: Normal Peripheral Pulses, Regular Rate, Rhythm, No Edema, No Gal lop, No JVD, No Murmur, No Rub. No: Gallop/S3, Gallop/S4, Friction Rub GI/Abdominal Exam: No Organomegaly, No Distention, No Abnormal Bruit, No Mass, Pelvis Stable, Tender (Mild to moderate right upper quadrant palpation pain), Abnormal Bowel Sounds (Somewhat increased diffuse bowel sounds however not high- pitched in nature.). No: Guarding, Rigid, Rebound (Female) Exam: Deferred Rectal (Female) Exam: Deferred Back Exam: Normal Inspection, Full Range of Motion. No: CVA Tenderness (L), CVA Tenderness (R), Muscle Spasm Extremities: Normal Inspection, Normal Range of Motion, Non-Tender, No Pedal Edema, Normal Capillary Refill. No: Leon's Sign Neurological: Alert, Oriented, CN II-XII Intact, Normal Cognition, Normal Gait, Normal Reflexes (Negative Babinski's), No Motor/Sensory Deficits Psychiatric: Anxious (Mild). No: Depressed Mood Skin Exam: Warm, Dry, Intact, Normal Color, No Rash. No: Diaphoretic, Ecchymosis, Jaundice, Pallor, Petechiae, Wound/Incision Lymphatic: No Adenopathy Course - Vital Signs Last Recorded V/S: Last Vital Signs Temp 36.8 C 05/11/20 12:30 Pulse 79 05/11/20 12:30 Resp 18 05/11/20 12:30 BP 111/70 05/11/20 12:30 Pulse Ox 100 05/11/20 12:30 Vital Signs - 24 hr 05/11/20 12:30 Temperature [ 36.8 C Oral] Pulse, 79 Peripheral [ Left Pulse Oximetry] Respiratory 18 Rate Blood Pressure 111/70 [Right Upper Arm] O2 Sat by Pulse 100 Oximetry - Orders/Labs/Meds Orders: Active Orders 24 hr Category Date Time Status Peripheral IV Care [RC] . DIRECTED Care 05/11/20 12:47 Active Nothing Per Oral Diet [DIET] Diet 05/11/20 Breakfast Active Abdomen Pelvis w Cont [CT] Stat Exams 05/11/20 12:47 Stop Req Abdomen Series w Chest 1V [CR] Stat Exams 05/11/20 12:47 Taken CULTURE URINE [RM] Routine Lab 05/11/20 12:50 Received Sodium Chloride 0.9% [Saline Flush] Med 05/11/20 12:46 Active 10 ml FLUSH ASDIRECTED PRN Obtain Past Medical Record [OM.PC] Urgent Oth 05/11/20 12:47 Active Peripheral IV Insertion Adult [OM.PC] Stat Oth 05/11/20 12:47 Ordered Resuscitation Status Stat Resus Stat 05/11/20 12:46 Ordered Medication Orders Sodium Chloride (Saline Flush) 10 ml FLUSH ASDIRECTED PRN PRN Reason: Keep Vein Open Last Admin: 05/11/20 13:03 Dose: 10 ml Documented by: Admin: 05/11/20 12:55 Dose: 10 ml Documented by: DEION Labs: Laboratory Tests 05/11/20 05/11/20 05/11/20 Range/Units 12:50 12:50 12:50 WBC 8.2 (4.0-10.2) K/uL RBC 4.91 (3.77-5.09) M/uL Hgb 14.6 (11.7-15.5) g/dL Hct 42.6 (34.0-46.0) % MCV 86.8 (84.0-98.0) fL MCH 29.7 (28.2-33.3) pg MCHC 34.3 (31.7-36.0) g/dL RDW 12.9 (11.2-14.1) % Plt Count 255 (150-350) K/uL Neut % (Auto) 40.6 L (45.0-80.0) % Lymph % (Auto) 46.7 (10.0-50.0) % [place] % (Auto) 8.6 (2.0-14.0) % Eos % (Auto) 4.0 (0.0-5.0) % Baso % (Auto) 0.1 (0.0-2.0) % Neut # (Auto) 3.34 (1.40-7.00) K/uL Lymph # (Auto) 3.84 H (0.50-3.50) K/uL [place] # (Auto) 0.71 (0.00-1.00) K/uL Eos # (Auto) 0.33 (0.00-0.50) K/uL Baso # (Auto) 0.01 (0.00-0.20) K/uL PT 10.0 (9.5-12.0) SEC INR 1.0 APTT 24.2 L (24.5-32.8) SEC Sodium (136-145) mmol/L Potassium (3.5-5.1) mmol/L Chloride (98-107) mmol/L Carbon Dioxide (21.0-32.0) mmol/L BUN (7-18) mg/dL Creatinine (0.51-1.17) mg/dL Est Cr Clr Drug Dosing Estimated GFR (MDRD) mL/min Glucose (74-106) mg/dL Lactic Acid (0.4-2.0) mmol/L Uric Acid (2.6-7.2) mg/dL Calcium (8.5-10.1) mg/dL Magnesium (1.8-2.4) mg/dL Total Bilirubin (0.2-1.0) mg/dL AST (15-37) U/L ALT (12-78) U/L Alkaline Phosphatase (46-116) IU/L Total Protein (6.4-8.2) g/dL Albumin (3.4-5.0) g/dL Amylase 61 (25-115) U/L Lipase (73-393) U/L HCG, Qual (NEGATIVE) Specimen Type Urine Color Urine Appearance Urine pH (5.0-9.0) Ur Specific [place] (1.005-1.030) Urine Protein (NEGATIVE) mg/dL Urine Glucose (UA) (NEGATIVE) mg/dL Urine Ketones (NEGATIVE) mg/dL Urine Occult Blood (NEGATIVE) Urine Nitrite (NEGATIVE) Urine Bilirubin (NEGATIVE) Urine Urobilinogen (0.2-1.0) E.U./dL Ur Leukocyte Esterase (NEGATIVE) Urine RBC /HPF Urine WBC /HPF Ur Epithelial Cells /LPF Urine Bacteria (NONE TO FEW) /HPF 05/11/20 05/11/20 05/11/20 Range/Units 12:50 12:50 12:50 WBC (4.0-10.2) K/uL RBC (3.77-5.09) M/uL Hgb (11.7-15.5) g/dL Hct (34.0-46.0) % MCV (84.0-98.0) fL MCH (28.2-33.3) pg MCHC (31.7-36.0) g/dL RDW (11.2-14.1) % Plt Count (150-350) K/uL Neut % (Auto) (45.0-80.0) % Lymph % (Auto) (10.0-50.0) % [place] % (Auto) (2.0-14.0) % Eos % (Auto) (0.0-5.0) % Baso % (Auto) (0.0-2.0) % Neut # (Auto) (1.40-7.00) K/uL Lymph # (Auto) (0.50-3.50) K/uL [place] # (Auto) (0.00-1.00) K/uL Eos # (Auto) (0.00-0.50) K/uL Baso # (Auto) (0.00-0.20) K/uL PT (9.5-12.0) SEC INR APTT (24.5-32.8) SEC Sodium 139 (136-145) mmol/L Potassium 3.7 (3.5-5.1) mmol/L Chloride 104 (98-107) mmol/L Carbon Dioxide 27.1 (21.0-32.0) mmol/L BUN 8 (7-18) mg/dL Creatinine 0.58 (0.51-1.17) mg/dL Est Cr Clr Drug Dosing TNP Estimated GFR (MDRD) > 60 mL/min Glucose 87 (74-106) mg/dL Lactic Acid 0.8 (0.4-2.0) mmol/L Uric Acid 3.8 (2.6-7.2) mg/dL Calcium 8.6 (8.5-10.1) mg/dL Magnesium 2.0 (1.8-2.4) mg/dL Total Bilirubin 0.5 (0.2-1.0) mg/dL AST 21 (15-37) U/L ALT 39 (12-78) U/L Alkaline Phosphatase 43 L (46-116) IU/L Total Protein 7.6 (6.4-8.2) g/dL Albumin 3.8 (3.4-5.0) g/dL Amylase (25-115) U/L Lipase 121 (73-393) U/L HCG, Qual Negative (NEGATIVE) Specimen Type Urine Color Urine Appearance Urine pH (5.0-9.0) Ur Specific [place] (1.005-1.030) Urine Protein (NEGATIVE) mg/dL Urine Glucose (UA) (NEGATIVE) mg/dL Urine Ketones (NEGATIVE) mg/dL Urine Occult Blood (NEGATIVE) Urine Nitrite (NEGATIVE) Urine Bilirubin (NEGATIVE) Urine Urobilinogen (0.2-1.0) E.U./dL Ur Leukocyte Esterase (NEGATIVE) Urine RBC /HPF Urine WBC /HPF Ur Epithelial Cells /LPF Urine Bacteria (NONE TO FEW) /HPF 05/11/20 Range/Units 12:50 WBC (4.0-10.2) K/uL RBC (3.77-5.09) M/uL Hgb (11.7-15.5) g/dL Hct (34.0-46.0) % MCV (84.0-98.0) fL MCH (28.2-33.3) pg MCHC (31.7-36.0) g/dL RDW (11.2-14.1) % Plt Count (150-350) K/uL Neut % (Auto) (45.0-80.0) % Lymph % (Auto) (10.0-50.0) % [place] % (Auto) (2.0-14.0) % Eos % (Auto) (0.0-5.0) % Baso % (Auto) (0.0-2.0) % Neut # (Auto) (1.40-7.00) K/uL Lymph # (Auto) (0.50-3.50) K/uL [place] # (Auto) (0.00-1.00) K/uL Eos # (Auto) (0.00-0.50) K/uL Baso # (Auto) (0.00-0.20) K/uL PT (9.5-12.0) SEC INR APTT (24.5-32.8) SEC Sodium (136-145) mmol/L Potassium (3.5-5.1) mmol/L Chloride (98-107) mmol/L Carbon Dioxide (21.0-32.0) mmol/L BUN (7-18) mg/dL Creatinine (0.51-1.17) mg/dL Est Cr Clr Drug Dosing Estimated GFR (MDRD) mL/min Glucose (74-106) mg/dL Lactic Acid (0.4-2.0) mmol/L Uric Acid (2.6-7.2) mg/dL Calcium (8.5-10.1) mg/dL Magnesium (1.8-2.4) mg/dL Total Bilirubin (0.2-1.0) mg/dL AST (15-37) U/L ALT (12-78) U/L Alkaline Phosphatase (46-116) IU/L Total Protein (6.4-8.2) g/dL Albumin (3.4-5.0) g/dL Amylase (25-115) U/L Lipase (73-393) U/L HCG, Qual (NEGATIVE) Specimen Type Urincc Urine Color Yellow Urine Appearance Clear Urine pH 7.5 (5.0-9.0) Ur Specific [place] 1.020 (1.005-1.030) Urine Protein Negative (NEGATIVE) mg/dL Urine Glucose (UA) Negative (NEGATIVE) mg/dL Urine Ketones Negative (NEGATIVE) mg/dL Urine Occult Blood Negative (NEGATIVE) Urine Nitrite Negative (NEGATIVE) Urine Bilirubin Negative (NEGATIVE) Urine Urobilinogen 0.2 (0.2-1.0) E.U./dL Ur Leukocyte Esterase Negative (NEGATIVE) Urine RBC Not seen /HPF Urine WBC 0-5 /HPF Ur Epithelial Cells Moderate H /LPF Urine Bacteria Few (NONE TO FEW) /HPF Urine specimen set up for culture and sensitivity. Meds: Medications Generic Name Dose Route Start Last Admin Trade Name Freq PRN Reason Stop Dose Admin Sodium Chloride 10 ml 05/11/20 12:46 05/11/20 13:03 Saline Flush FLUSH 10 ml ASDIRECTED PRN Administration Keep Vein Open Discontinued Medications Generic Name Dose Route Start Last Admin Trade Name Fredyllan PRN Reason Stop Dose Admin Al Hydroxide/Mg Hydroxide 30 ml 05/11/20 12:48 05/11/20 12:55 Gi Cocktail PO 05/11/20 12:49 30 ml ONETIME ONE Administration Famotidine 40 mg 05/11/20 12:46 05/11/20 12:58 Pepcid IVPUSH 05/11/20 12:47 40 mg ONETIME ONE Administration Lactated Ringer's 1,000 mls @ 999 mls/hr 05/11/20 12:46 05/11/20 12:55 Ringers, Lactated IV 05/11/20 13:46 999 mls/hr .BOLUS ONE Administration Iopamidol 100 ml 05/11/20 12:54 Isovue-300 (61%) IVPUSH 05/11/20 12:55 ONETIME ONE Metoclopramide HCl 20 mg 05/11/20 12:48 05/11/20 12:58 Reglan IVPUSH 05/11/20 12:49 Not Given ONETIME ONE Metoclopramide HCl 10 mg 05/11/20 12:57 05/11/20 12:58 Reglan IVPUSH 05/11/20 12:58 10 mg ONETIME ONE Administration Pantoprazole Sodium 40 mg 05/11/20 12:46 05/11/20 13:02 Protonix Iv IVPUSH 05/11/20 12:47 40 mg ONETIME ONE Administration - Radiology Interpretation Free Text/Narrative:: Acute abdominal x-ray shows moderate diffuse stool with mild increased nonspecific bowel gaseous pattern with no free air, fluid levels, ileus, obstruction, etc. IUD noted and appears to be in proper position. Possible mild pulmonary obstructive disease and/or mild pulmonary hypertension with no pulmonary infiltrates, cardiomegaly, CHF, pneumothorax, etc. Departure - Departure Time of Disposition: 14:45 Disposition: Home, Self-Care 01 Condition: Good Clinical Impression: Mixed anxiety depressive disorder, Peptic reflux disease Abdominal pain Qualifiers: Abdominal location: epigastric Qualified Code(s): R10.13 - Epigastric pain Osteoarthritis Qualifiers: Osteoarthritis location: multiple joints Osteoarthritis type: primary Qualified Code(s): M89.49 - Other hypertrophic osteoarthropathy, multiple sites - Discharge Information *PRESCRIPTION DRUG MONITORING PROGRAM REVIEWED*: Not Applicable *COPY OF PRESCRIPTION DRUG MONITORING REPORT IN PATIENT BHARATH: Not Applicable Prescriptions: Famotidine [Pepcid] 20 mg PO BID #60 tab Instructions: Gastritis, Adult, [id number], Abdominal Pain, Adult, [id number] Referrals: Luiza Gonzales PA-C [Primary Care Provider] - Forms: ED Department Discharge Additional Instructions: 1. Follow-up in this facility at 10:30 AM on 05/15/2020 for a complete abdominal ultrasound. Strictly follow preprocedural instructions. 2. Follow-up at the [facility] in [place] with Dr. Gelacio Edmond MD, general surgeon, on 05/18/2020 for evaluation and possible scheduling of an EGD/stomach evaluation. This facility will contact you later concerning specifics of time, etc. 3. [place] diet including encouragement of oral fluids such as sports drinks, etc. for 24-48 hours as directed. Advance to strict heart healthy diet as tolerated thereafter as before. 4. You may use additional OTC antacids as needed, if breakthrough symptoms occur. 5. Immediately after this visit verify that your cellular telephone's voicemail has been activated and is empty. Also verify that your home telephone's answer ing machine is operating properly and has space to receive messages. Note that it is sometimes necessary for us to be able to contact you at a later date to discuss your medical care. 6. Please remember that we are ALWAYS here for you and want to answer any questions you may have. Feel free to call the hospital any time and we call you back CADE. Sepsis Event Note (ED) - Evaluation Sepsis Screening Result: No Definite Risk - Focused Exam Vital Signs: Vital Signs Temp Pulse Resp BP Pulse Ox 05/11/20 12:30 36.8 C 79 18 111/70 100 - Problem List & Annotations (1) Abdominal pain SNOMED Code(s): 83782133 Code(s): R10.9 - UNSPECIFIED ABDOMINAL PAIN Status: Acute Priority: High Current Visit: No Onset Date: 04/27/20 Annotation/Comment:: Preliminary verbal report was received from the radiological tech of today's HIDA scan with apparent excellent ejection fraction of the high 80s90s. Note, however, that patient did become significantly symptomatic after injection of contrast medium suggesting possibility of gallbladder component to her disease. Previous 1.5 month history of fatty food intolerance and intermittent abdominal pain as above. Note normal CT scan of the abdomen pelvis results on 04/27/2020, however the gallbladder was contracted at that time. Abdominal ultrasound will be conducted in this facility on 05/15. Note that previous symptoms have improved with dietary adjustments as above. Her amylase and lipase are once again also normal. High-dose IV Pepcid and IV Protonix with additional IV Reglan and green lizard were given in the emergency room with complete resolution of symptoms prior to discharge. Surgical consultation with possible EGD, etc. in the future depending on her clinical course. Dietary issues were once again extensively discussed with information previously provided and strict avoidance of all fatty foods, etc.. Add additional Pepcid therapy to current omeprazole with additional as needed OTC antacids, which was also discussed with the patient today. Qualifiers: Abdominal location: epigastric Qualified Code(s): R10.13 - Epigastric pain (2) Mixed anxiety depressive disorder SNOMED Code(s): 008740988 Code(s): F41.8 - OTHER SPECIFIED ANXIETY DISORDERS Status: Chronic Priority: Medium Current Visit: No Annotation/Comment:: Stable by history, although some mild anxiety component once again today. Continue to observe closely by her regular provider. (3) Osteoarthritis SNOMED Code(s): 629696439 Code(s): M19.90 - UNSPECIFIED OSTEOARTHRITIS, UNSPECIFIED SITE Status: Chronic Priority: Medium Current Visit: No Annotation/Comment:: Stable by history Qualifiers: Osteoarthritis location: multiple joints Osteoarthritis type: primary Qualified Code(s): M89.49 - Other hypertrophic osteoarthropathy, multiple sites (4) Peptic reflux disease SNOMED Code(s): 078431737 Code(s): K21.9 - GASTRO-ESOPHAGEAL REFLUX DISEASE WITHOUT ESOPHAGITIS Status: Chronic Priority: High Current Visit: No Annotation/Comment:: Compliance with medications encouraged. High-dose IV Pepcid and Protonix given as above. No evidence of acute GI bleed. Otherwise continue aggressive therapy as above with additional surgical consultation as above. - Problem List Review Problem List Initiated/Reviewed/Updated: Yes - My Orders Last 24 Hours: My Active Orders 05/11/20 Breakfast Nothing Per Oral Diet [DIET] 05/11/20 12:46 Sodium Chloride 0.9% [Saline Flush] 10 ml FLUSH ASDIRECTED PRN Resuscitation Status Stat 05/11/20 12:47 Peripheral IV Care [RC] . DIRECTED Abdomen Pelvis w Cont [CT] Stat Abdomen Series w Chest 1V [CR] Stat Obtain Past Medical Record [OM.PC] Urgent Peripheral IV Insertion Adult [OM.PC] Stat 05/11/20 12:50 CULTURE URINE [RM] Routine - Assessment/Plan Last 24 Hours: My Active Orders 05/11/20 Breakfast Nothing Per Oral Diet [DIET] 05/11/20 12:46 Sodium Chloride 0.9% [Saline Flush] 10 ml FLUSH ASDIRECTED PRN Resuscitation Status Stat 05/11/20 12:47 Peripheral IV Care [RC] . DIRECTED Abdomen Pelvis w Cont [CT] Stat Abdomen Series w Chest 1V [CR] Stat Obtain Past Medical Record [OM.PC] Urgent Peripheral IV Insertion Adult [OM.PC] Stat 05/11/20 12:50 CULTURE URINE [RM] Routine Assessment:: As above Plan: As above. Extensive precautions were given to the patient, who is in agreement with the treatment plan. See Patient Instructions for further treatment and plan.
[2020-05-11] MEDS ORDERED: GI Cocktail Oral Solution 30 ML PO ONE (12:48)
[2020-05-11] MEDS ORDERED: Metoclopramide 10 MG/2 ML SDV IVPUSH ONE ×2 (12:48→12:57)
[2020-05-11] MEDS ORDERED: Iopamidol 612 MG/ML 100 ML Bottle IVPUSH ONE (12:54)
[2020-05-11] MEDS: Sodium Chloride 0.9% 10 ML Syringe FLUSH PRN ×2 (12:55→13:03)
[2020-05-11 13:16] LABS: PTT,PARTIAL THROMBOPLSTIN TIME 24.2 SEC (24.5-32.8)
[2020-05-11 13:17] LABS: CHLORIDE,CL 104 mmol/L (98-107); SODIUM,NA 139 mmol/L (136-145)
== END 2020-05-11 14:45 | disposition home or self-care (01) ==
LOC: LL.ED 12:26
DX: K21.9 Gastro-esophageal reflux disease without esophagitis (principal); F41.8 Other specified anxiety disorders; M89.49 Other hypertrophic osteoarthropathy, multiple sites; E66.9 Obesity, unspecified; Z68.33 Body mass index [BMI] 33.0-33.9, adult; Z79.899 Other long term (current) drug therapy
CPT/HCPCS: 36415; 74022; 80053; 81001; 82150; 83605; 83690; 83735; 84550; 84703; 85025; 85610; 85730; 87086; 96361; 96374; 96375; 99284-25; A9270-GY; C9113; J2765; J2805; J3490; J7120

== ENCOUNTER 2021-08-17 14:30 | Emergency (ER) | payer MEDICAID ==
[2021-08-17] MEDS ORDERED: HYDROmorphone 1 MG/ML Syringe IVPUSH ONE (14:31)
[2021-08-17] MEDS ORDERED: Ondansetron 4 MG/2 ML SDV IVPUSH ONE (14:31)
[2021-08-17] MEDS ORDERED: Sodium Chloride 0.9% 10 ML Syringe FLUSH PRN (14:31)
--- NOTE | 2021-08-17 15:37 | EDM.PDOC ---
ED HPI GENERAL MEDICAL PROBLEM - General Chief Complaint: Lower Extremity Injury/Pain Stated Complaint: Knee Pain, Fall Time Seen by Provider: 08/17/21 14:30 Source of Information: Reports: Patient History Limitations: Reports: No Limitations - History of Present Illness INITIAL COMMENTS - FREE TEXT/NARRATIVE: yasmany slipped on the ice and hurt her right knee. denies any previous injury to the knee. did not weight bear on it since it happened. Her helped get her up and brought her in. otherwise healthy - Related Data Allergies Allergy/AdvReac Type Severity Reaction Status Date / Time No Known Allergies Allergy Verified 05/11/20 12:55 Home Meds: Home Meds Omeprazole 20 mg PO BIDAC #60 cap.sr 04/27/20 [Rx] Famotidine [Pepcid] 20 mg PO BID #60 tab 05/11/20 [Rx] Past Medical History - Past Health History Medical/Surgical History: Denies Medical/Surgical History HEENT History: Reports: Allergic Rhinitis, Sinusitis, Other (See Below). Denies: Cataract, Glaucoma, Hard of Hearing, Impaired Vision, Macular Degeneration, Otitis Media, Retinal Detachment Other HEENT History: Allergic rhinitis and sinusitis mostly to dust. Cardiovascular History: Reports: Syncope, Other (See Below). Denies: Afib, Aneurysm, Arrhythmia, Blood Clots/VTE/DVT, CAD, Heart Failure, Heart Murmur, High Cholesterol, Hypertension Other Cardiovascular History: The patient does not know her cholesterol status. Recurrent brief syncopal episodes with anxiety attacks as below. Respiratory History: Reports: Intubation, Previous. Denies: Asthma, Bronchitis, Recurrent, COPD, Intubation, Difficult, PE, Pneumonia, Recurrent, Pneumothorax, Sleep Apnea, TB Gastrointestinal History: Reports: GERD. Denies: Bowel Obstruction, Celiac Disease, Cholelithiasis, Chronic Constipation, Chronic Diarrhea, Fecal Incontinence, GI Bleed, Irritable Bowel Syndrome, Jaundice, PUD Genitourinary History: Reports: None. Denies: Acute Renal Failure, Chronic Renal Insuffiency, Renal Calculus, STD, Urinary Incontinence, UTI, Recurrent HOUSEFELLOW History: Reports: . Denies: Dysfunctional Uterine Bleeding, Endometriosis, Polycystic Ovaries, Spontaneous Other HOUSEFELLOW History: LMP was normal about 2 weeks. Note after repeat IUD placement as below with previous Mirena with no menses for about 2 years after her last delivery in March 2018. Full term delivery by C-sections without complications during pregnancies or deliveries. Musculoskeletal History: Reports: Arthritis, Back Pain, Chronic, Osteoarthritis. Denies: Fracture, Gout, Neck Pain, Chronic, RA, SLE Neurological History: Reports: None. Denies: Concussion, CVA, Headaches, Chronic, Head Trauma, Migraines, MS, Parkinson's, Seizure, TIA Psychiatric History: Reports: Anxiety, Depression, Panic Attack, Other (See Below). Denies: Abuse, Victim of, ADD, ADHD, Addiction, Psych Hospitalization(s), Psychosis, PTSD, Suicide Attempt, Suicidal Ideation Other Psychiatric History: Psychogenic syncope as above. Endocrine/Metabolic History: Reports: Obesity/BMI 30+. Denies: Diabetes, Gestational, Diabetes, Type I, Diabetes, Type II, Diabetes Mellitus, Type 3c, Hypothyroidism, IDDM Hematologic History: Reports: None. Denies: Anemia, Blood Transfusion(s), Iron Deficiency Immunologic History: Reports: None. Denies: AIDS, HIV, SLE Oncologic (Cancer) History: Reports: None. Denies: Basal Cell Carcinoma, Cervix, Hodgkin's Lymphoma, Leukemia, Lymphoma, Malignant Melanoma, Non- Hodgkin's Lymphoma, Ovarian, Squamous Cell Carcinoma, Uterine Dermatologic History: Reports: None. Denies: Eczema, Psoriasis - Infectious Disease History Infectious Disease History: Reports: Chicken Pox. Denies: C-Difficile, Measles, Meningitis, Mononucleosis, MRSA, Mumps, Pertussis (Whooping Cough), Rheumatic Fever, Rubella, Scarlet Fever, Shingles, TB, VRE - Past Surgical History Head Surgeries/Procedures: Reports: None HEENT Surgical History: Reports: Adenoidectomy, Oral Surgery, Tonsillectomy, Other (See Below). Denies: Cataract Surgery, Eye Surgery, Laser Surgery, LASIK, Myringotomy w Tube(s), Naso-Sinus Surgery Other HEENT Surgeries/Procedures: Tonsillectomy and adenoidectomy at age 11. [place] teeth extraction x2 at age 11. Current dental implant in progress since March 2020. Cardiovascular Surgical History: Reports: None. Denies: Varicose Respiratory Surgical History: Reports: None. Denies: Thoracentesis GI Surgical History: Reports: None. Denies: Appendectomy, Cholecystectomy, Colonoscopy, EGD, Hernia, Abdominal, Hernia, Inguinal, Hernia Repair/Other Female Surgical History: Reports: Section, Other (See Below). Denies: Breast Biopsy, D&C, Hysterectomy, Tubal Ligation Other Female Surgeries/Procedures: C-sections x3 as above. Initial IUD plac ement after last delivery in March 2018 with complications of detached IUD with removal on 03/13/2020 and replacement on 04/11/2020. Endocrine Surgical History: Reports: None. Denies: Thyroid Biopsy Neurological Surgical History: Reports: None. Denies: C-Spine, Discectomy, Laminectomy, Lumbar Spine, Sacral Spine, Spinal Fusion, Thoracic Spine, Gabriella tebroplasty Musculoskeletal Surgical History: Reports: None. Denies: Arthroscopic Procedure, Carpal Tunnel, Ganglion Cyst, Joint Replacement, ORIF, Shoulder Surgery Oncologic Surgical History: Reports: None Dermatological Surgical History: Reports: None - Past Imaging History Past Imaging History: Reports: CAT Scan (CT scan of the abdomen and pelvis with IV contrast on 05/24/2020.), HIDA Scan (05/11/2020), Ultrasound (Pelvic ultrasound on 02/21/2020.) Social & Family History - Tobacco Use Tobacco Use Status *Q: Never Tobacco User - Caffeine Use Caffeine Use: Reports: Coffee (1 cup/day), Energy Drinks (1can/month), Tea (4 cups/day). Denies: Soda - Alcohol Use Alcohol Use History: No Alcohol Use in Last Twelve Months: No - Recreational Drug Use Recreational Drug Use: No Drug Use in Last 12 Months: No - Living Situation & Occupation Living situation: Reports: (2014, 3 children), with Family ( and 3 children.) Occupation: Unemployed Review of Systems - Review of Systems Review Of Systems: See Below Constitutional: Reports: No Symptoms Eyes: Reports: No Symptoms Ears: Reports: No Symptoms Nose: Reports: No Symptoms Mouth/Throat: Reports: No Symptoms Respiratory: Reports: No Symptoms Cardiovascular: Reports: No Symptoms GI/Abdominal: Reports: No Symptoms Genitourinary: Reports: No Symptoms Musculoskeletal: Reports: Joint Pain (right knee) Neurological: Reports: No Symptoms Psychiatric: Reports: No Symptoms ED EXAM, GENERAL - Physical Exam Exam: See Below Exam Limited By: No Limitations General Appearance: Alert, Moderate Distress Eye Exam: Bilateral Eye: EOMI, PERRL Ears: Normal External Exam Nose: Normal Inspection Throat/Mouth: Normal Voice Head: Atraumatic Respiratory/Chest: No Respiratory Distress, Lungs Clear Cardiovascular: Normal Peripheral Pulses, Regular Rate, Rhythm, No Murmur Extremities: Other (normal upper right leg exam, no pain to internal or external rotation. no pain to palpation of the lower leg on the right . normal sensation of the toes and foot. Right knee with deformity consistent with patella dislocation laterally. mild joint effusion. Patient does not allow palaption) ED TRAUMA EXTREMITY PROCEDURES - Joint Reduction Knee Sedation: Other (given 1 mg dialudid prior to reduction IV) Pre-Procedure NV Status: Normal Post-Procedure NV Status: Normal Technique: Other (flexion of the right knee with then extension and gental pressure onthe patella medially) Post-Reduction Imaging: Completely Reduced Joint Reduction Complications: No Progress/Comments: sensation intact, pain relieved. knee immobilizer placed, crutches given Course - Orders/Labs/Meds Orders: Active Orders 24 hr Category Date Time Status Peripheral IV Care [RC] . DIRECTED Care 08/17/21 14:32 Active Knee 1V or 2V Rt [CR] Stat Exams 08/17/21 14:31 Taken Sodium Chloride 0.9% [Saline Flush] Med 08/17/21 14:31 Active 10 ml FLUSH ASDIRECTED PRN DME for Discharge [COMM] Stat Oth 08/17/21 15:17 Ordered Peripheral IV Insertion Adult [OM.PC] Routine Oth 08/17/21 14:31 Ordered Medication Orders Sodium Chloride (Sodium Chloride 0.9% 10 Ml Syringe) 10 ml FLUSH ASDIRECTED PRN PRN Reason: Keep Vein Open Meds: Medications Generic Name Dose Route Start Last Admin Trade Name Freq PRN Reason Stop Dose Admin Sodium Chloride 10 ml 08/17/21 14:31 Sodium Chloride 0.9% 10 Ml Syringe FLUSH ASDIRECTED PRN Keep Vein Open Discontinued Medications Generic Name Dose Route Start Last Admin Trade Name Freq PRN Reason Stop Dose Admin Hydromorphone HCl 1 mg 08/17/21 14:31 08/17/21 14:45 Hydromorphone 1 Mg/Ml Syringe IVPUSH 08/17/21 14:32 1 mg ONETIME ONE Administration Ondansetron HCl 4 mg 08/17/21 14:31 08/17/21 14:45 Ondansetron 4 Mg/2 Ml Sdv IVPUSH 08/17/21 14:32 4 mg ONETIME ONE Administration - Radiology Interpretation Free Text/Narrative:: patellar dislocation on x-ray. no fracture or otheracute. preliminary read only - Re-Assessments/Exams Free Text/Narrative Re-Assessment/Exam: 08/17/21 15:38 patient desires pain medication prior to reduction. Completed after medication done. Allow to recover here and discharged home with knee immobilizer and crutches 08/17/21 15:41 given tramadol from the ER stock Departure - Departure Time of Disposition: 15:41 Disposition: Home, Self-Care 01 Condition: Good Clinical Impression: Closed dislocation of right patella - Discharge Information Instructions: How to Use a Knee Immobilizer, [id number], Crutch Use, Adult, [id number], Patellar Dislocation, [id number] Referrals: PCP,Unknown [Primary Care Provider] - Additional Instructions: It is important to ice the area. DO NOT bend the knee as it may dislocate again. Wear the immobilizer at all times other than the shower but do not bend the knee then. You can use tylenol or motrin or one tramadol tablet every 6 hours as needed for pain. Make an appointment to follow up with orthopedic surgery next week for determination of length of time in the brace, need for mri or surgery. - My Orders Last 24 Hours: My Active Orders 08/17/21 14:31 Knee 1V or 2V Rt [CR] Stat Sodium Chloride 0.9% [Saline Flush] 10 ml FLUSH ASDIRECTED PRN Peripheral IV Insertion Adult [OM.PC] Routine 08/17/21 14:32 Peripheral IV Care [RC] . DIRECTED 08/17/21 15:17 DME for Discharge [COMM] Stat - Assessment/Plan Last 24 Hours: My Active Orders 08/17/21 14:31 Knee 1V or 2V Rt [CR] Stat Sodium Chloride 0.9% [Saline Flush] 10 ml FLUSH ASDIRECTED PRN Peripheral IV Insertion Adult [OM.PC] Routine 08/17/21 14:32 Peripheral IV Care [RC] . DIRECTED 08/17/21 15:17 DME for Discharge [COMM] Stat
== END 2021-08-17 16:15 | disposition home or self-care (01) ==
LOC: LL.ED 14:30
DX: S83.004A Unspecified dislocation of right patella, initial encounter (principal); K21.9 Gastro-esophageal reflux disease without esophagitis; E66.9 Obesity, unspecified; Z68.32 Body mass index [BMI] 32.0-32.9, adult; Z79.899 Other long term (current) drug therapy; W00.0XXA Fall on same level due to ice and snow, initial encounter
CPT/HCPCS: 27560; 73560; 96374; 96375; 99283; J1170; J2405